=== PATIENT | male | born 1955 | race African-American/Black ===

== ENCOUNTER → 2020-04-27 | Outpatient (CLI) | payer OTHER ==
[~2020-04-27] MED LIST: COVID-19 VACCINE (PFIZER)/PF 30 MCG/0.3 ML VIAL IM ONE; EPINEPHRINE INJ/PF 1 MG/1 ML AMPULE IM PRN
== END ==
LOC: EMPHEALTH 15:21
PROVIDERS: ATTEND Internal Medicine
DX: Z23 Encounter for immunization (principal)
CPT/HCPCS: 91300